=== PATIENT | female | born 1930 | race Caucasian/White ===

== ENCOUNTER 2016-12-27 17:05 | Inpatient (IN) | payer OTHER, MEDICARE ==
[~2016-12-27] VITALS: Ht 157.5 cm; Wt 86.2 kg
--- NOTE | ~2016-12-27 | O ---
[facility] [address] OPERATIVE REPORT Name: THOMAS KELLER Room #: 426-P ADM IN M.R.#: [id number] Admission: 12/27/16 Attend Phys: Dl Burciaga DO Discharge: Date of : 28 Report #: [id number] THIS REPORT FOR: //name// CC: Dl Fuentes DATE OF SERVICE: 12/28/2016 PREOPERATIVE DIAGNOSIS: Right humeral shaft fracture, mid shaft, displaced. POSTOPERATIVE DIAGNOSIS: Right humeral shaft fracture, mid shaft, displaced. PROCEDURE PERFORMED: Open reduction internal fixation of right mid shaft humeral fracture. SURGEON: Marcus Fuentes M.D. METAL MINE INSPECTOR: Janine Wise PA-C ANESTHESIA: General with preoperative interscalene block. FLUIDS: 500 mL crystalloid. ESTIMATED BLOOD LOSS: Approximately 50 mL. IMPLANTS UTILIZED: Synthes narrow 4.5 mm locking plate. DESCRIPTION OF PROCEDURE: After proper identification of the patient and operative site in preoperative holding area, the operative site was signed by myself. Prophylactic antibiotics given. The patient was initially seen by my partner, Dr. Christian Fuentes. She had been cleared from medical standpoint and Dr. Sales, pulmonary, had requested ABGs preoperatively. She has also been cleared by anesthesia. The patient wished to proceed with the above procedure. Her emergency contact is her brother, Willis Ramirez. The patient was then brought back to the operative suite after the risks, benefits, alternatives and potential complications were discussed at length including potential injury to the radial nerve. On exam preoperatively, she was able to minimally flex and extend the fingers, wrist and thumb, it is difficult for her to engage a sensory exam. She was brought back to the operative suite and after induction of satisfactory general anesthesia, she was carefully positioned in the supine position. The right upper extremity was stabilized on the hand table, the right upper extremity was sterilely prepped and draped. An anterior approach to the humerus was planned. Full thickness skin flaps were carefully developed. Dissection was carried down to the level of the fascia. At this point, the biceps was carefully retracted. The brachialis muscle belly was identified and [facility] [address] [place] [address] OPERATIVE REPORT Name: THOMAS KELLER [facility] Room #: 426-P ADM IN M.R.#: [id number] Admission: 12/27/16 Attend Phys: Dl Burciaga DO Discharge: Date of : 29 Report #: [id number] at this point it was split into two-thirds medial, one-third lateral and this was carefully opened. There was really only a small amount of muscle that had to be dissected as at the time of injury the patient actually had stripped the muscle and periosteum of the majority of the superior and inferior bony fragments. There was no evidence of radial nerve being interposed in the fracture site. The fracture site was carefully irrigated and the soft tissue was removed. It was able to be interdigitated and with careful retraction of the soft tissues with blunt Hohmann retractors, a narrow 4.5 mm Synthes locking plate was provisionally secured with cortical screws. Bone appeared to have reasonable purchase and this was a 6-hole plate. Fracture was able to be reduced satisfactorily in a combination of locking and cortical screws were utilized to secure the fracture. Six cortices of fixation was able to be achieved on both sites. The patient's wound was then thoroughly irrigated with normal saline. Implant images in the AP, oblique, and lateral planes were obtained, again overall satisfactory reduction with stable fixation. The fascial layer was carefully closed with #1 Vicryl, 2-0 Vicryl the subcutaneous tissues, final skin closure was with victor m. Sterile dressing was applied as well as a sling. At the time of dictation, she was still in the operative suite with anticipated discharge to the recovery room in stable condition. Qualified fish hatchery assistant was utilized throughout the entire procedure to aid in patient limb positioning, visualization and retraction of the soft tissues, instrument passage, closure and sling application. By: 1215 1259 Marcus Fuentes MD /erika
--- NOTE | ~2016-12-27 | HC ---
[facility] [place] [address] CONSULTATION Name: THOMAS KELLER SHYAM Room #: 430-P [facility] IN M.R.#: [id number] Admission: 12/27/16 Attend Phys: Dl Burciaga DO Discharge: 12/31/16 Date of : 29 Report #: [id number] THIS REPORT FOR: //name// CC: Dl Fuentes TYPE OF REPORT: Pulmonary consultation. REFERRING PHYSICIAN: Dl Burciaga D.O. REASON FOR CONSULTATION: Abnormal chest x-ray. HISTORY OF PRESENT ILLNESS: The patient is an 86-year-old white female who presents to the Emergency Room following a fall. She complained of right shoulder pain. Chest x-ray was abnormal. A pulmonary consultation was requested. The patient resides at [facility]. Earlier today, the patient fell, landing on her right shoulder. She was found to have a right humerus fracture. Chest x-ray also suggests possible right hilar prominence. My review of the chest x-ray shows prominent bilateral mediastinum, mild interstitial changes bilaterally and mild cardiomegaly. When compared to the previous chest x-ray from August of 2014, the mediastinum appears to be mildly generous at that time. Mild interstitial changes are also noted. At present, the patient is somewhat sedated postoperatively. PAST MEDICAL HISTORY: Notable for hypertension and hyperlipidemia. PAST SURGICAL HISTORY: Bilateral knee surgery in the past and left mastectomy in 2004. ALLERGIES: None to medications. HOME MEDICATIONS: List reviewed. This would include tramadol, lisinopril, Cipro, Benadryl, Claritin, aspirin, Motrin, Evista, alendronate and metoprolol. FAMILY HISTORY: Noncontributory. SOCIAL HISTORY: She resides at a nursing facility. She has a DPOA who lives out of town. REVIEW OF SYSTEMS: Deferred as the patient is not able to answer questions. PHYSICAL EXAMINATION: [facility] [address] [place] [address] CONSULTATION Name: THOMAS KELLER Room #: 430-P [facility] IN .R.#: [id number] Admission: 12/27/16 Attend Phys: Dl Burciaga DO Discharge: 12/31/16 Date of : 29 Report #: [id number] GENERAL: She is awake, drowsy, in no apparent distress. VITAL SIGNS: Temperature is 97.4 degrees Fahrenheit, pulse is 58, respiratory rate is 20, blood pressure 153/82 mmHg and saturation is 100%. HEENT: Normocephalic and atraumatic. NECK: Supple, without any lymphadenopathy or thyromegaly. CHEST: Breath sounds are fair due to poor effort; otherwise, no rales or wheezes. CARDIOVASCULAR: Heart sounds are normal S1 and S2. There are no murmurs or gallop. Pulses are 2+/4+ positive bilaterally. BREASTS: Exam deferred. ABDOMEN: Soft and nontender. No organomegaly or masses felt. GENITOURINARY: Deferred. RECTAL: Deferred. EXTREMITIES: There is no edema, cyanosis or clubbing. Right upper arm is in a cast. RADIOLOGICAL DATA: Portable chest x-ray as mentioned above showing cardiomegaly, probably mediastinum and mild interstitial changes are noted. LABORATORY DATA: Arterial blood gas revealed pH 7.38, pCO2 of 52, pO2 of 95 on 2 liters of O2. Electrolytes are normal. WBC is 14,500 without a left shift. IMPRESSION: 1. Status post fall, sustaining right humerus fracture, status post surgery. 2. Irdgr-zg-rwybdvr hypoxic hypercapnic respiratory failure. The patient does not have any known chronic lung disease. Hypercarbia, which appears to be chronic, likely related to hypoventilation syndrome related to advanced age and debility. We will continue to monitor. 3. Abnormal chest x-ray with prominent mediastinum. This is likely related to vascular changes. Right hilar mass is not appreciated in my review. Once stable, I would recommend a PA and lateral chest x-ray for followup. At this time, no further workup is necessary. 4. History of dementia. 5. Hypertension. 6. Generalized debility and weakness. 7. History of breast cancer status post left mastectomy. RECOMMENDATION: She will benefit from chest physiotherapy, incentive spirometry and wean O2 for saturation 90%. Follow up chest x-ray. We will also try to keep her on a slightly side given the chest x-ray findings. She will need aggressive PT-OT if able. DVT and GI prophylaxis will be addressed. [address] [address] CONSULTATION Name: THOMAS KELLER SHYAM Room #: 430-P DIS IN M.R.#: [id number] Admission: 12/27/16 Attend Phys: Dl Burciaga DO Discharge: 12/31/16 Date of : 29 Report #: [id number] Thank you for this consultation. <ELECTRONICALLY SIGNED> By: Abad Sales MD 12/31/16 [id number] Abad Sales MD /nt
--- NOTE | ~2016-12-27 | H ---
[facility] [place] [address] HISTORY AND PHYSICAL Name: THOMAS KELLER Room #: 430-P ADM IN M.R.#: [id number] Admission: 12/27/16 Attend Phys: Dl Burciaga DO Discharge: Date of : 29 Report #: [id number] THIS REPORT FOR: //name// CC: Dl Fuentes DATE OF SERVICE: 12/28/2016 REASON FOR CONSULTATION: Right humerus fracture. HISTORY OF PRESENT ILLNESS: The patient is an 86-year-old female who fell at her facility, which was [facility] from a standing height yesterday. In the Emergency Room, he was found to have a midshaft right humerus fracture as well as a possible mass in her right ilium. She does have mild dementia, ambulates without assistive device. CURRENT MEDICATIONS: Have been reviewed on the chart. PAST MEDICAL HISTORY: Significant for right knee replacement, hypertension, high cholesterol, left knee replacement, and radical left mastectomy. SOCIAL HISTORY: She does not smoke, drink or use illicit drugs. She does live at [facility] in assisted living. ALLERGIES: No known drug allergies. 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 She is alert, but somewhat confused and difficult to get history from likely secondary to her dementia. EXTREMITIES: Examination of the right upper extremity shows moderate bruising over her mid upper arm. She is in a sling. NEUROLOGIC: She is neurologically intact distally with radial, ulnar and median nerves. Intact motor and sensory function. She has 2+ radial pulse. IMAGING: X-ray examination, 2-view of the right humerus shows a midshaft transverse humerus fracture with 100% displacement and angulation. ASSESSMENT: Right midshaft humerus fracture. PLAN: I spoke briefly with the patient today about surgical intervention to this given the amount of displacement and angulation. She is understanding that she will require surgery for this. It appears pulmonology has been consulted secondary to her hilar mass and hopeful to be seen by them this morning and have pulmonary clearance prior to surgery. I did have her scheduled for surgery [address] [address] HISTORY AND PHYSICAL Name: THOMAS KELLER [facility] Room #: 430-P ADM IN M.R.#: [id number] Admission: 12/27/16 Attend Phys: Dl Burciaga DO Discharge: Date of : 29 Report #: [id number] mid-morning this morning with my partner, Dr. Marcus Fuentes pending medical clearance. Thank you for allowing us to participate in the care of the patient. <ELECTRONICALLY SIGNED> By: Christian uFentes MD 12/30/16 0929 0717 0739 Christian Fuentes MD /nt
--- NOTE | ~2016-12-27 | 2DMMODE ---
[facility] [address] [place] [address] 2 D/M-MODE ECHOCARDIOGRAM Name: THOMAS KELLER [facility] Room #: 430-P ADM IN M.R.#: [id number] Admission: 12/27/16 Attend Phys: Dl Burciaga, Discharge: Date of : 29 Date of Service: 12/31/16 1050 Report #: [id number] THIS REPORT FOR: //name// APPROVED REPORT Study performed: 12/31/2016 10:11:16 EXAM: Comprehensive 2D, Doppler, and color-flow Echocardiogram Patient Location: Bedside Room #: 430 Status: routine BSA: 1.87 HR: 86 bpm BP: 153/68 mmHg Rhythm: Atrial Fibrillation Other Information Study Quality: Adequate Indications Atrial Fibrillation 2D Dimensions RVDd: 44.65 mm LVEF(%): 57.03 (>50%) IVSd: 11.83 (7-11mm) LVOT Diam: 22.91 (18-24mm) LVDd: 34.23 mm PWd: 10.02 (7-11mm) Ascending Ao: 37.20 (22-36mm) LVDs: 24.27 (25-40mm) Aortic Root: 37.25 mm Swann's LVEF: 57.03 % Volumes Left Atrial Volume (Systole) Single Plane 4CH: 87.13 mL Single Plane 2CH: 111.29 mL LA ESV Index: 58.00 mL/m2 Aortic Valve AoV Peak Jesus.: 1.69 m/s AO Peak Gr.: 11.49 mmHg LVOT Max P.43 mmHg LVOT Max V: 1.16 m/s SLY Vmax: 2.84 cm2 Mitral Valve MV Decel. Time: 184.01 ms MV E Max Jesus.: 1.43 m/s [facility] [place] [address] 2 D/M-MODE ECHOCARDIOGRAM Name: THOMAS KELLER [facility] Room #: 430-P [facility] IN M.R.#: [id number] Admission: 12/27/16 Attend Phys: Dl Burciaga, Discharge: Date of : 29 Date of Service: 12/31/16 1050 Report #: [id number] Pulmonary Valve PV Peak Jesus.: 0.86 m/s PV Peak Gr.: 2.94 mmHg Tricuspid Valve TR Peak Jesus.: 2.90 m/s RAP Estimate: 15.00 mmHg TR Peak Gr.: 33.74 mmHg PA Pressure: 49.00 mmHg Left Ventricle The left ventricle is normal size. There is normal LV segmental wall motion. Mild basal septal hypertrophy is present. Left ventricular systolic function is normal. LVEF is 65-70%. This study is not technically sufficient to allow evaluation of the LV diastolic function due to atrial fibrillation. Right Ventricle The right ventricle is normal size. The right ventricular systolic function is normal. Atria Left atrium is moderately dilated. Right atrium is severely dilated. Aortic Valve Aortic valve is calcified. Moderate aortic regurgitation. There is no aortic valvular stenosis. Mitral Valve Heavily calcified annulus. Trace mitral regurgitation. No evidence of mitral valve stenosis. Tricuspid Valve The tricuspid valve is normal in structure. Mild to moderate tricuspid regurgitation. Estimated PAP is 45-50mmHg. Pulmonic Valve The pulmonary valve is normal in structure. Mild pulmonic regurgitation. Great Vessels Aortic root is at the upper limits of normal. Ascending aorta is at the upper limits of normal. IVC is dilated and collapses <50% with inspiration. Pericardium [facility] [address] [place] [address] 2 D/M-MODE ECHOCARDIOGRAM Name: THOMAS KELLER [facility] Room #: 430-P ADM IN M.R.#: [id number] Admission: 12/27/16 Attend Phys: Dl Burciaga, Discharge: Date of : 29 Date of Service: 12/31/16 1050 Report #: [id number] There is no pericardial effusion. <Conclusion> The left ventricle is normal size. Left ventricular systolic function is normal. Left atrium is moderately dilated. Right atrium is severely dilated. Aortic valve is calcified. Moderate aortic regurgitation. Trace mitral regurgitation. Mild to moderate tricuspid regurgitation. Estimated PAP is 45-50mmHg. <ELECTRONICALLY SIGNED> By: Andres Chapman MD [id number] Andres Chapman MD /TINY
--- NOTE | ~2016-12-27 | EKG ---
[address] [address] ELECTROCARDIOGRAM REPORT Name: THOMAS KELLER SHYAM Room #: 426-P ADM IN M.R.#: [id number] Admission: 12/27/16 Attend Phys: Dl Burciaga DO Discharge: Date of : 29 Report #: [id number] THIS REPORT FOR: //name// [facility] ED Test Date: 2016-12-27 Test Time: 18:31:21 Pat Name: THOMAS KELLER Department: Room: 426 Gender: F [employer] Digger Truck Driver: [id number] : [id number] Requested By: uElogio Field Order Number: [id number] MD: Vignesh Ramos Measurements Intervals Backus Rate: 76 P: MO: QRS: 20 QRSD: 87 T: -13 QT: 404 QTc: 455 Interpretive Statements Atrial fibrillation Abnormal R-wave progression, early transition Minimal ST depression, inferior leads Compared to ECG 08/14/2015 12:29:44 ST (T wave) deviation now present Electronically Signed On 12-27-2016 22:43:06 CDT by Vignesh Ramos [email or web address] <ELECTRONICALLY SIGNED> By: Vignesh Ramos MD 12/27/16 2243 30 30 Vignesh Ramos MD /EPI
--- NOTE | ~2016-12-27 | HC ---
[facility] [place] [address] CONSULTATION Name: THOMAS KELLER Room #: 430-P ADM IN M.R.#: [id number] Admission: 12/27/16 Attend Phys: Dl Bucriaga DO Discharge: Date of : 29 Report #: [id number] THIS REPORT FOR: //name// CC: Dl Fuentes DATE OF SERVICE: 12/30/2016 INDICATION: Bradycardia. HISTORY OF PRESENT ILLNESS: This is an 86-year-old female with chronic atrial fibrillation admitted with a fall and fracturing her right humerus. The patient underwent open reduction and internal fixation of her right humerus. We are asked to evaluate the patient for episodes of bradycardia with heart rates in the 30 beats per minute range, while asleep. The patient denies any episodes of chest pains, shortness of breath, lightheadedness or congestion. There is no history of fever, chills or nausea. PAST MEDICAL HISTORY: The patient resides at [facility]. History of multiple falls, has mild dementia. Chronic atrial fibrillation, managed with beta santiago therapy, not on anticoagulation secondary to age and multiple recurrent falls. Hypertension, breast cancer, DJD with left total knee replacement. ALLERGIES: None. MEDICATIONS: Include aspirin once a day, lisinopril 40 mg daily, metoprolol 100 mg twice a day. SOCIAL HISTORY: Negative for tobacco use. Resides at [facility]. REVIEW OF SYSTEMS: A full 10-point review of systems performed. Only the pertinent positives and negatives are described in the HPI. PHYSICAL EXAMINATION: VITAL SIGNS: Blood pressure is 140/80, heart rate is 50 beats per minute. GENERAL APPEARANCE: This is an overweight female in no acute respiratory distress. HEAD AND EYES: Normocephalic. Sclerae anicteric. ENT: Oral mucosa moist. NECK: Supple. LUNGS: Clear to auscultation. CARDIAC: Irregularly irregular. S1, S2 positive. ABDOMEN: Soft, nontender. Bowel sounds positive. EXTREMITIES: No cyanosis. Trace bilateral lower extremity edema. [facility] [address] [place] [address] CONSULTATION Name: THOMAS KELLER [facility] Room #: 430-P ADM IN M.R.#: [id number] Admission: 12/27/16 Attend Phys: Dl Burciaga DO Discharge: Date of : 29 Report #: [id number] IMPRESSION AND PLAN: 1. Tachycardia/bradycardia syndrome, having heart rates in the 30s while asleep. She remains clinically asymptomatic. The plan is to reduce the dose of metoprolol to 25 mg twice a day. 2. Permanent atrial fibrillation. Continue with low dose beta santiago. Not an anticoagulation candidate in view of her history of falls. 3. Humerus fracture, status post surgery. 4. Hypertension. Continue with ZOE inhibitor. 5. Edema. Thank you for allowing me to participate in the care of your patient. <ELECTRONICALLY SIGNED> By: Andres Chapman MD 12/31/16 0830 1254 1319 MD john Gonzalez
[~2016-12-27 17:05] MED LIST: ALENDRONATE SOD70 MG PO; ALEVE220 MG; ASPIR 8181 MG PO; BENADRYL25 MG PO; CIPRO250 M1 PO; CLARITIN10 MG PO; EVISTA; IBUPROFEN 200200 M1 PO; IBUPROFEN 600600 M1 PO; LOPRESSOR100 M1 PO; SILVADENE20 GM; TRAMADOL HCL50 MG PO; VITAMIN D-32000 UNIT PO; ZESTRIL40 MG PO
[2016-12-27 17:21] VITALS: BP 175/76
[2016-12-27 18:37] LABS: POTASSIUM 3.9 mmol/L (3.5-5.1)
[2016-12-27 18:42] VITALS: BP 159/85
[2016-12-27 18:45] LABS: PROTIME 10.4 Seconds (9.3-11.4)
[2016-12-27 19:03] LABS: HEMATOCRIT 37.3 % (37.0-47.0); HEMOGLOBIN 12.3 gm/dL (12.0-15.0); MCH 27.2 pg (26.0-34.0); MCV 82.4 fL (80.0-100.0); RBC 4.53 mil/uL (4.20-5.00); WBC 14.5 thou/uL (4.0-11.0)
[2016-12-27 19:15] VITALS: BP 165/142
[2016-12-27 20:00] VITALS: BP 173/90
[2016-12-28] VITALS (8 sets, daily range): BP systolic 131–186; BP diastolic 59–133
[2016-12-28 06:29] LABS: ABSOLUTE NEUTROPHILS 6.8 thou/uL (1.4-8.2); BASOPHILS 0.4 % (0.0-2.0); EOSINOPHILS 1.6 % (0.0-3.0); HEMATOCRIT 35.7 % (37.0-47.0); HEMOGLOBIN 11.6 gm/dL (12.0-15.0); LYMPHOCYTES 12.3 % (24.0-44.0); MCH 27.1 pg (26.0-34.0); MCHC 32.6 g/dL (28.0-37.0); MCV 83.1 fL (80.0-100.0); MONOCYTES 11.7 % (1.0-8.0); PLATELET COUNT 245 thou/uL (150-400); WBC 9.2 thou/uL (4.0-11.0)
[2016-12-28 06:30] LABS: MANUAL DIFF NO
[2016-12-28 06:37] LABS: CALCIUM 8.7 mg/dL (8.5-10.1); CREATININE 0.8 mg/dL (0.6-1.0); POTASSIUM 4.2 mmol/L (3.5-5.1)
[2016-12-28] MEDS ORDERED: ASPERCREME 1141.7 GM TOP (10:11)
[2016-12-28] MEDS ORDERED: TYLENOL325 MG PO (10:14)
[2016-12-28] MEDS ORDERED: ACETAMINOPHEN500 M3 PO (10:17)
[2016-12-28] MEDS ORDERED: LASIX 40 MG TAB40 M2 PO (10:23)
[2016-12-28] MEDS ORDERED: MELATIN3 MG PO (10:25)
[2016-12-28] MEDS ORDERED: KLOR-CON 1010 MEQ PO (10:28)
[2016-12-28] MEDS ORDERED: TRAZODONE HCL50 MG PO (10:28)
[2016-12-28 10:40] LABS: ABG SAMPLE TYPE ARTERIAL; BE(vivo) 4.5 mmol/L (-2 to +3); HCO3 30.7 mmol/L (22.0-26.0); LACTATE 1.63 mmol/L (0.5-2.0); O2Hb 95.9 % (92.0-98.0); PCO2 52.8 mmHg (35.0-45.0); PO2 95.5 mmHg (80.0-100.0); pH 7.382 (7.360-7.450); sO2 97.1 % (92.0-98.0); tCO2 32.3 mmol/L (24.0-30.0)
[2016-12-28 10:42] LABS: STICK SITE R.RADIAL
[2016-12-29 00:10] VITALS: BP 134/83; BP 164/74
[2016-12-29 03:45] VITALS: BP 157/127
[2016-12-29 04:31] VITALS: BP 132/90
[2016-12-29 07:48] VITALS: BP 150/59
[2016-12-29 11:39] LABS: HEMATOCRIT 36.1 % (37.0-47.0); HEMOGLOBIN 11.5 gm/dL (12.0-15.0); MCH 26.8 pg (26.0-34.0); MCHC 31.8 g/dL (28.0-37.0); MCV 84.3 fL (80.0-100.0); PLATELET COUNT 228 thou/uL (150-400); RBC 4.28 mil/uL (4.20-5.00); RDW 16.1 % (10.5-14.5); WBC 12.3 thou/uL (4.0-11.0)
[2016-12-29 11:40] LABS: MANUAL DIFF YES
[2016-12-29 11:49] LABS: CALCIUM 8.8 mg/dL (8.5-10.1); POTASSIUM 4.6 mmol/L (3.5-5.1)
[2016-12-29 12:23] LABS: ABSOLUTE NEUTROPHILS 9.7 thou/uL (1.4-8.2); TOTAL CELL COUNT 100
[2016-12-29 12:24] LABS: ANISOCYTOSIS 1+
[2016-12-29 16:16] VITALS: BP 175/71
[2016-12-29 20:12] VITALS: BP 118/62
[2016-12-30 07:48] VITALS: BP 139/68
[2016-12-30 12:32] LABS: ABSOLUTE NEUTROPHILS 8.6 thou/uL (1.4-8.2); BASOPHILS 0.5 % (0.0-2.0); EOSINOPHILS 1.4 % (0.0-3.0); HEMATOCRIT 30.1 % (37.0-47.0); LYMPHOCYTES 9.5 % (24.0-44.0); MCH 27.6 pg (26.0-34.0); MCHC 33.4 g/dL (28.0-37.0); MCV 82.8 fL (80.0-100.0); MONOCYTES 10.3 % (1.0-8.0); PLATELET COUNT 207 thou/uL (150-400); POLYS 78.3 % (36.0-66.0); RBC 3.64 mil/uL (4.20-5.00); RDW 16.3 % (10.5-14.5)
[2016-12-30 12:33] LABS: MANUAL DIFF NO
[2016-12-30 12:45] LABS: CALCIUM 8.4 mg/dL (8.5-10.1); CREATININE 0.9 mg/dL (0.6-1.0); POTASSIUM 3.8 mmol/L (3.5-5.1)
[2016-12-30 15:29] VITALS: BP 143/73
[2016-12-30 19:42] VITALS: BP 153/68
[2016-12-31 03:48] VITALS: BP 144/70
[2016-12-31] MEDS ORDERED: LOPRESSOR25 PO (09:30)
[2016-12-31] MEDS ORDERED: TRAMADOL HCL50 MG PO (09:31)
== END 2016-12-31 14:13 | DRG 492 ==
LOC: ER 17:05 → 4E 18:21 → EROBS 18:21 → 4E 19:15
PROVIDERS: Anesthesiology; Family Medicine; Physician Assistant
PROC: 0PSF04Z Reposition Right Humeral Shaft with Internal Fixation Device, Open Approach (ICD-10-PCS; principal; 2016-12-28)
PROC: 0RBJ4ZX Excision of Right Shoulder Joint, Percutaneous Endoscopic Approach, Diagnostic (ICD-10-PCS; 2016-12-28)
PROC: 0LS34ZZ Reposition Right Upper Arm Tendon, Percutaneous Endoscopic Approach (ICD-10-PCS; 2016-12-28)
DX: S42.301A Unspecified fracture of shaft of humerus, right arm, initial encounter for closed fracture (principal); J96.21 Acute and chronic respiratory failure with hypoxia; J96.22 Acute and chronic respiratory failure with hypercapnia; N39.0 Urinary tract infection, site not specified; Z96.653 Presence of artificial knee joint, bilateral; E78.00 Pure hypercholesterolemia, unspecified; I10 Essential (primary) hypertension; M19.011 Primary osteoarthritis, right shoulder; E78.5 Hyperlipidemia, unspecified; R91.8 Other nonspecific abnormal finding of lung field; F03.90 Unspecified dementia, unspecified severity, without behavioral disturbance, psychotic disturbance, mood disturbance, and anxiety; I48.2 Chronic atrial fibrillation; Z79.899 Other long term (current) drug therapy; I49.5 Sick sinus syndrome; Z85.3 Personal history of malignant neoplasm of breast; Z90.12 Acquired absence of left breast and nipple; W18.39XA Other fall on same level, initial encounter; Z79.82 Long term (current) use of aspirin; Y93.89 Activity, other specified; Y92.89 Other specified places as the place of occurrence of the external cause; Y99.8 Other external cause status
CPT/HCPCS: 10183; 50010; 50101; 50386; 50417; 51132; 51412; 56524; 56525; 56667; 62110; 62900; 70005